=== PATIENT | female | born 1940 | race Caucasian/White ===

== ENCOUNTER → 2016-05-02 | Outpatient (CLI) | payer OTHER ==
--- NOTE | 2016-05-02 15:21 | MA ---
Screening Digital Mammogram With iCAD Analysis Clinical Indications: Routine screening. Technique: Standard cephalocaudal and mediolateral oblique projections were obtained. This examinatio n was processed by the iCAD computer-aided detection system. Comparison: March 2015, February 2012, December 2010, December 2009, December 2008, November 2007. Breast Density: Type B; Scattered fibroglandular densities. Findings: CAD was reviewed. There is an equivocal developing area of architectural change in the cent ral right breast noted on the oblique view only. No suspicious microcalcifications are seen. The left breast is stable in appearance. Impression: Possible developing right breast architectural change requires further evaluation, BI-RAD S 0. Recommendation: Spot compression assessment of the right breast with ultrasound suggested if the abno rmality persists on diagnostic evaluation. [facility] will send a result letter to the patient.
--- NOTE | 2016-05-04 08:44 | DX ---
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 This will increase the measured b one density lumbar spine. Recommend the use of other sites to assess fracture risk. Recommend further treatment to decrease fracture risk and increased bone mineral density. Consider repeating the study in 2 years NOTE: The risk of osteoporotic fractures increases approximately twofold for each 1.0 SD decrease in T-score. The T-score represents the standard deviations from a young normal, same sex, reference po pulation. Low bone density is not the only risk factor for fracture. Clinical factors to consider include fall risk, previous osteoporotic fractures, family history of fractures, smoking, and low body weight. Patients who have an unexpectedly low BMD may need to be evaluated for secondary causes of low bone m ineral density. In comparing the present study to a prior study, lack of a significant increase or decrease in BMD ma y signify efficacy of the patient's present treatment. Bone mineral density measurements performed with densitometers produced by different manufacturers ar e not comparable. For the most reproducible BMD measurement, subsequent exams should be performed on the same densitometer.
== END ==
LOC: BMCIMAGING 10:55
DX: Z12.31 Encounter for screening mammogram for malignant neoplasm of breast (principal); Z13.820 Encounter for screening for osteoporosis; M81.0 Age-related osteoporosis without current pathological fracture
CPT/HCPCS: G0202

== ENCOUNTER → 2016-05-15 | Outpatient (CLI) | payer OTHER ==
--- NOTE | 2016-05-15 13:50 | MA ---
Right Diagnostic Digital Mammogram with iCAD Clinical Indications: Asymmetric density on recent screening mammogram. Technique: Digital spot compression MLO and true lateral views. This examination was processed by [facility] iCAD computer-aided detection system. Comparison: Recent mammogram. April 2016, March 2015, February 2012, December 2010 Breast Density: C, 50-75%. Findings: Previous asymmetric density identified is no longer detected on the additional views or sarah e lateral views. This is consistent with normal overlapping breast parenchyma. Impression: ACR BI-RADS 2: Benign right mammogram. Recommendation: Annual mammograms with next screening mammograms in April 2017. [facility] will send a result letter to the patient. Negative mammography should not preclude additional workup of a clinically suspicious finding. Findings and recommendations have been discussed with the patient who agrees with the plan. The patient's information is entered into a reminder system with a target due date for her next mammo gram.
== END ==
LOC: BMCIMAGING 12:44
DX: R92.2 Inconclusive mammogram (principal)